=== PATIENT | male | born 1975 | race Two or more races ===

== ENCOUNTER 2019-05-07 19:36 | Emergency (ER) | payer MEDICAID ==
[~2019-05-07] VITALS: Ht 162.6 cm; Wt 70.3 kg
--- NOTE | 2019-05-07 20:03 | NUR ---
PT AAOX4. AMBULATORY/ PT C/O "BONE STUCK IN MY THROAT" S/P EATING A TACO 2 DAYS AGO. PT REPORTS FEELING PAIN TODAY IN THE NECK AREA. RR EVEN AND UNLABORED. -SOB. SAT 99% ON RA. AWAITING MD FOR EVAL.
[2019-05-07] MEDS ORDERED: IBUPROFEN 600 MG TABLET PO ONE ×2 (20:15→20:30)
--- NOTE | 2019-05-07 20:19 | NUR ---
Patient is resting comfortably in bed. Easily aroused. VSS. at bedside
--- NOTE | 2019-05-07 20:22 | NUR ---
xray at bedside
--- NOTE | 2019-05-07 21:00 | NUR ---
Patient discharged to home in stable condition. Written and verbal after care instructions given. Patient verbalizes understanding of instruction. PT ambulatory with a steady gait.
[2019-05-07 21:01] VITALS: BP 128/74
== END 2019-05-07 21:04 | disposition home or self-care (01) ==
LOC: ER 19:36
DX: F45.8 Other somatoform disorders (principal)
CPT/HCPCS: 70360-TC

== ENCOUNTER 2019-05-12 15:39 | Emergency (ER) | payer MEDICAID ==
[~2019-05-12] VITALS: Ht 167.6 cm; Wt 68.0 kg
[2019-05-12 16:16] VITALS: BP 109/77
[2019-05-12] MEDS ORDERED: IBUPROFEN 600 MG TABLET PO ONE ×2 (16:52→17:00)
== END 2019-05-12 16:55 | disposition home or self-care (01) ==
LOC: ER 15:45
DX: T16.1XXA Foreign body in right ear, initial encounter (principal); W45.8XXA Other foreign body or object entering through skin, initial encounter; Y93.89 Activity, other specified; Y92.89 Other specified places as the place of occurrence of the external cause; Y99.8 Other external cause status

== ENCOUNTER 2019-07-12 18:40 | Emergency (ER) | payer MEDICAID ==
[~2019-07-12] VITALS: Ht 162.6 cm; Wt 68.0 kg
[2019-07-12 18:43] VITALS: BP 127/85
[2019-07-12] MEDS ORDERED: IBUPROFEN 400 MG TABLET PO ONE (19:00)
[2019-07-12] MEDS ORDERED: IBUPROFEN 400 MG TABLET ONE (20:00)
== END 2019-07-12 20:51 | disposition home or self-care (01) ==
LOC: ER 18:45
DX: M25.462 Effusion, left knee (principal)
CPT/HCPCS: 73564-TC

== ENCOUNTER 2020-04-09 18:05 | Emergency (ER) | payer MEDICAID ==
[~2020-04-09] VITALS: Ht 162.6 cm; Wt 72.6 kg
[2020-04-09 18:11] VITALS: BP 134/94
== END 2020-04-09 18:16 | disposition home or self-care (01) ==
LOC: ER 18:08
DX: H66.91 Otitis media, unspecified, right ear (principal); J02.9 Acute pharyngitis, unspecified; J45.909 Unspecified asthma, uncomplicated

== ENCOUNTER 2022-02-22 15:55 | Emergency (ER) | payer MEDICAID ==
[~2022-02-22] VITALS: Ht 170.2 cm; Wt 77.1 kg
[2022-02-22 16:32] VITALS: BP 127/79
== END 2022-02-22 23:18 | disposition home or self-care (01) ==
LOC: ER 15:58
DX: T16.2XXA Foreign body in left ear, initial encounter (principal); X58.XXXA Exposure to other specified factors, initial encounter; Y93.89 Activity, other specified; Y92.89 Other specified places as the place of occurrence of the external cause; Y99.8 Other external cause status

== ENCOUNTER 2023-10-15 11:39 | Emergency (ER) | payer MEDICAID, OTHER ==
[~2023-10-15] VITALS: Ht 167.6 cm; Wt 72.6 kg
[2023-10-15] MEDS ORDERED: TDAP [DIPH/PERTUSSIS/TET] 0.5 ML VIAL IM ONE (12:02)
[2023-10-15] MEDS: TDAP [DIPH/PERTUSSIS/TET] 0.5 ML VIAL IM ONE (12:07)
[2023-10-15] MEDS ORDERED: LIDOCAINE HCL/PF 1% 30 ML SDV ONE (12:13)
[2023-10-15] MEDS: LIDOCAINE HCL/PF 1% 30 ML SDV IJ ONE (12:15)
[2023-10-15 13:07] VITALS: BP 124/69; TEMP 98.2; O2SAT 98
== END 2023-10-15 13:08 | disposition home or self-care (01) ==
LOC: ER 11:39
DX: S01.81XA Laceration without foreign body of other part of head, initial encounter (principal); W20.8XXA Other cause of strike by thrown, projected or falling object, initial encounter; Y93.89 Activity, other specified; Y92.89 Other specified places as the place of occurrence of the external cause; Y99.0 Civilian activity done for income or pay
CPT/HCPCS: 12013; 70450; 90471; 90715; 99285; A6403; J3490

== ENCOUNTER 2023-10-23 15:58 | Emergency (ER) | payer OTHER ==
[~2023-10-23] VITALS: Ht 167.6 cm; Wt 72.6 kg
[2023-10-23 16:01] VITALS: BP 122/66; TEMP 98; O2SAT 99
== END 2023-10-23 16:30 | disposition home or self-care (01) ==
LOC: ER 16:03
DX: S01.81XD Laceration without foreign body of other part of head, subsequent encounter (principal); Z48.02 Encounter for removal of sutures; X58.XXXD Exposure to other specified factors, subsequent encounter